=== PATIENT | female | born 1945 | race Hispanic/Latino ===

== ENCOUNTER → 2021-06-01 | Outpatient (CLI) | payer OTHER | END | disposition home or self-care (01) | LOC: RAH 09:41 | PROVIDERS: ATTEND Internal Medicine | DX: M47.816 Spondylosis without myelopathy or radiculopathy, lumbar region (principal); M85.88 Other specified disorders of bone density and structure, other site; M47.818 Spondylosis without myelopathy or radiculopathy, sacral and sacrococcygeal region | CPT/HCPCS: 72100; 72200 ==

== ENCOUNTER → 2022-02-27 | Outpatient (CLI) | payer OTHER | END | disposition home or self-care (01) | LOC: RAH 11:58 | PROVIDERS: ATTEND Physician Assistant | DX: M47.26 Other spondylosis with radiculopathy, lumbar region (principal) | CPT/HCPCS: 72110 ==

== ENCOUNTER → 2023-04-18 | Outpatient (CLI) | payer MEDICARE ==
[~2023-04-18] MED LIST: DIATR MEGLU/DIATRIZOATE SODIUM 30 ML BOTTLE ONE
== END | disposition home or self-care (01) ==
LOC: RAH 08:45
PROVIDERS: ATTEND Internal Medicine Gastroenterology
DX: R68.81 Early satiety (principal); Z90.49 Acquired absence of other specified parts of digestive tract
CPT/HCPCS: 74240; Q9963

== ENCOUNTER → 2023-05-22 | Outpatient (CLI) | payer MEDICARE ==
[2023-05-22 11:15] LABS: CREATININE 1.1 mg/dL (0.5-1.5)
== END | disposition home or self-care (01) ==
LOC: LAB 10:14
PROVIDERS: ATTEND Internal Medicine Gastroenterology
DX: R63.4 Abnormal weight loss (principal)
CPT/HCPCS: 36415; 82565; 84520

== ENCOUNTER → 2023-05-30 | Outpatient (CLI) | payer MEDICARE ==
[~2023-05-30] MED LIST changes: -DIATR MEGLU/DIATRIZOATE SODIUM 30 ML BOTTLE ONE; +IOHEXOL-350 75 ML VIAL IV ONE
== END | disposition home or self-care (01) ==
LOC: RAH 08:22
PROVIDERS: ATTEND Internal Medicine Gastroenterology
DX: K57.90 Diverticulosis of intestine, part unspecified, without perforation or abscess without bleeding (principal); K44.9 Diaphragmatic hernia without obstruction or gangrene; M47.815 Spondylosis without myelopathy or radiculopathy, thoracolumbar region; R63.4 Abnormal weight loss; Z90.49 Acquired absence of other specified parts of digestive tract
CPT/HCPCS: 74177; Q9967

== ENCOUNTER → 2023-10-11 | Outpatient (CLI) | payer MEDICARE | END | disposition home or self-care (01) | LOC: RAH 11:03 | PROVIDERS: ATTEND Family Medicine | DX: R06.2 Wheezing (principal); I70.0 Atherosclerosis of aorta; M41.84 Other forms of scoliosis, thoracic region; M47.815 Spondylosis without myelopathy or radiculopathy, thoracolumbar region | CPT/HCPCS: 71046 ==

== ENCOUNTER 2024-01-16 05:57 | Observation (INO) | payer MEDICARE ==
[2024-01-10 11:50] LABS: BASOPHILS # (AUTO) 0.04 K/uL (0.00-0.20); BASOPHILS % (AUTO) 0.5 % (0.0-5.0); EOSINOPHILS # (AUTO) 0.16 K/uL (0.00-0.70); HEMATOCRIT 36.4 % (36-48); IMMATURE GRANULOCYTE ABSOLUTE 0.01 K/uL (0-1); LYMPHOCYTES # (AUTO) 3.2 K/uL (1.0-4.8); LYMPHOCYTES % (AUTO) 38.7 % (21.0-51.0); MEAN CORPUSCULAR HEMOGLOBIN 31.5 pg (27.0-33.0); MEAN CORPUSCULAR HGB CONC 32.4 g/dL (32.0-36.0); MEAN CORPUSCULAR VOLUME 97.1 fL (79-99); MONOCYTES # (AUTO) 0.5 K/uL (0.1-1.0); MONOCYTES % (AUTO) 5.5 % (3.0-13.0); NEUTROPHILS # (AUTO) 4.4 K/uL (1.8-7.7); NEUTROPHILS % (AUTO) 53.2 % (40.0-77.0); PLATELET COUNT (AUTO) 264 K/uL (130-400); RED BLOOD CELL COUNT(AUTO) 3.75 MIL/uL (4.00-5.50); RED CELL DISTRIBUTION WIDTH 13.3 % (11.0-15.5); WHITE BLOOD COUNT (AUTO) 8.2 K/uL (4.8-10.8)
[2024-01-10 12:01] LABS: ALBUMIN 3.9 g/dL (3.5-5.0)
[2024-01-10 12:14] LABS: APPEARANCE,URINE CLEAR (CLEAR); BILIRUBIN,URINE NEGATIVE (NEGATIVE); COLOR,URINE LIGHT-YELLOW (YELLOW); GLUCOSE, URINE (UA) NEGATIVE (NEGATIVE); KETONES,URINE NEGATIVE (NEGATIVE); LEUKOCYTE ESTERASE ,URINE 25 Leu/uL (NEGATIVE); NITRATE,URINE NEGATIVE (NEGATIVE); OCCULT BLOOD,URINE NEGATIVE (NEGATIVE); PH,URINE 5.5 (5.0-8.0); PROTEIN,URINE NEGATIVE (NEGATIVE); UROBILINOGEN,URINE 0.2 mg/dL (0.2-1.0)
[2024-01-10 12:32] LABS: ADD UA MICROSCOPIC YES
[2024-01-10 12:36] LABS: BACTERIA,URINE RARE /HPF (None Seen); RBC,URINE 0-1 /HPF (0-1); SQUAMOUS EPITHELIAL CELL,UR RARE /HPF (0-2)
[2024-01-10 12:37] VITALS: BP 166/86; PULSE 80; RESP 16; TEMP 97.1
[2024-01-16] VITALS (31 sets, daily range): BP systolic 124–158; BP diastolic 61–93; PULSE 60–95; RESP 8–20; TEMP 96.2–98; O2SAT 98
[~2024-01-16] VITALS: Ht 162.6 cm; Wt 47.5 kg
[~2024-01-16 05:57] MED LIST changes: +ABAL1.56 SQ; +BIOTIN PO; +CALC-1125 PO; +DULO30CA52 PO; +ERGO500093 PO; +FERR-82 PO; +GALC120P SQ; -IOHEXOL-350 75 ML VIAL IV ONE; +LEVO50CA4 PO; +LIFI1DRO OU; +MAGNESIUM PO; +MELO-108 PO; +METH4TAB16 PO; +PANT40TA54 PO; +TELM80TA10 PO; +TRAM50TA4 PO; +VITAMIN B1 PO; +VITAMIN B12 PO
[2024-01-16] MEDS: FAMOTIDINE 20MG VIAL IV ONE (06:41)
[2024-01-16] MEDS: acetaMINOPHEN 1,000 MG/100 ML VIAL IV ONE (06:41)
[2024-01-16] MEDS: SCOPOLAMINE HYDROBROMIDE 1 EACH ADH..PATCH TD ONE (06:41)
[2024-01-16] MEDS ORDERED: ketaMINE 50MG/ML SYRINGE 50 MG/ML DISP.SYRIN ONE (06:50)
[2024-01-16] MEDS ORDERED: ROPivacaine 0.5% 5MG/ML 30ML ONE (06:50)
[2024-01-16] MEDS ORDERED: rocuRONium bROMide 10MG/1ML 5ML VL ONE ×2 (06:53→08:44)
[2024-01-16] MEDS ORDERED: LIDOCAINE PF 100MG/5ML (2%) SYRINGE 5ML ONE (06:53)
[2024-01-16] MEDS ORDERED: proPOFol 10 MG/ML 20ML VIAL IV ONE (06:53)
[2024-01-16] MEDS ORDERED: FENTanyl CITRate PF 50 MCG/1 ML 2ML VIAL ONE (06:54)
[2024-01-16] MEDS: ceFAZolin SODIUM 2 GM VIAL ONE (07:20)
[2024-01-16] MEDS: TRANEXAMIC ACID 1000MG/10ML ONE (07:20)
[2024-01-16] MEDS: LACTATED RINGERS 1000ML 1,000 ML IV ONE (07:26)
[2024-01-16] MEDS ORDERED: ondanSETRON 4MG INJ ONE (07:29)
[2024-01-16] MEDS ORDERED: dexaMETHasone SOD PHOSPHATE 10MG/ML 1ML VIAL ONE (07:30)
[2024-01-16] MEDS ORDERED: phenylEPHRINE HCL 10 MG/ML 1ML VIAL IV ONE (07:42)
[2024-01-16] MEDS ORDERED: GLYCOPYRROLATE 0.2 MG/ML 5 ML VIAL ONE (08:21)
[2024-01-16] MEDS ORDERED: NEOSTIGMINE METHYLSULFATE 1MG/ML IV ONE (08:21)
[2024-01-16] MEDS: ketOROlac 30MG VIAL (30MG/ML) ONE ×2 (08:26→10:45)
[2024-01-16] MEDS: ROPivacaine 0.5% 5MG/ML 30ML ONE (08:26)
[2024-01-16] MEDS: TRANEXAMIC ACID 1000MG/10ML IV ONE (08:55)
[2024-01-16] MEDS ORDERED: ondanSETRON 4MG INJ IVP PRN (09:30)
[2024-01-16] MEDS ORDERED: PoTASSium chl 10% ELIXIR 20MEQ 20 MEQ/15 ML UDCUP PO PRN (09:30)
[2024-01-16] MEDS ORDERED: CALCIUM CARB 500MG PO PRN (09:30)
[2024-01-16] MEDS ORDERED: PoTASSium chloRIDE 20MEQ/100ML 100 ML IV PRN (09:30)
[2024-01-16] MEDS ORDERED: PoTASSium chloRIDE 20MEQ ER 20 MEQ ERTAB PO PRN (09:30)
[2024-01-16] MEDS: 0.9%NACL 1000ML 1,000 ML IV SCH (09:30)
[2024-01-16] MEDS: PHARMACY COMMUNICATION MISC SCH (10:00)
[2024-01-16] MEDS ORDERED: GALCANEZUMAB GNLM 120 MG SQ SCH (10:00)
[2024-01-16] MEDS: ondanSETRON 4MG INJ ONE ×2 (10:44→10:49)
[2024-01-16] MEDS: MEPERIDINE-PF 25 MG/ML SYG ONE ×2 (10:46→10:48)
[2024-01-16] MEDS: ketOROlac 15MG/ML VIAL (15MG/ML) ONE (10:46)
[2024-01-16] MEDS: traMADol HCL 50 MG TABLET ONE (11:39)
[2024-01-16] MEDS: HYDROcodone/acetaMINOPHEN 10/325 MG TAB ONE (12:03)
[2024-01-16] MEDS: (Calcium Carbonate (Calcium) 600 MG) PO SCH (14:00)
[2024-01-16] MEDS: ceFAZolin SODIUM 2 GM VIAL IVPB SCH (15:08)
[2024-01-16] MEDS: GABApentin 100 MG CAPSULE PO SCH (15:09)
[2024-01-16] MEDS: HYDROcodone/APAP 5/325 1 TAB TABLET PO PRN (15:35)
[2024-01-16] MEDS: duloXETine HCL 30 MG CAP PO SCH (20:27)
[2024-01-16] MEDS: doCUSate SODIUM 100 MG CAP PO SCH (20:27)
[2024-01-16] MEDS: methylPREDNISolone 4 MG TABLET PO SCH (20:27)
[2024-01-16] MEDS: ABALOPARATIDE SQ SCH (20:28)
[2024-01-16] MEDS: LIFITEGRAST OU SCH (20:28)
[2024-01-17] VITALS (8 sets, daily range): BP systolic 116–155; BP diastolic 60–82; PULSE 77–92; RESP 17–20; TEMP 97.2–99.4; O2SAT 97–98
[2024-01-17] MEDS: CYCLOBENZAPRINE HCL 10 MG TABLET PO PRN (02:56)
[2024-01-17 04:47] LABS: HEMATOCRIT 23.4 % (36-48); MEAN CORPUSCULAR HEMOGLOBIN 31.1 pg (27.0-33.0); MEAN CORPUSCULAR HGB CONC 32.5 g/dL (32.0-36.0); MEAN CORPUSCULAR VOLUME 95.9 fL (79-99); RED BLOOD CELL COUNT(AUTO) 2.44 MIL/uL (4.00-5.50); RED CELL DISTRIBUTION WIDTH 13.2 % (11.0-15.5); WHITE BLOOD COUNT (AUTO) 9.9 K/uL (4.8-10.8)
[2024-01-17 04:53] LABS: POTASSIUM 4.8 mmol/L (3.5-5.1)
[2024-01-17] MEDS: FERROUS FUMARATE 324 MG TABLET PO PRN (05:57)
[2024-01-17] MEDS: levoTHYROxine 50 MCG TABLET PO SCH (05:57)
[2024-01-17] MEDS: LoSARTan 100 MG TABLET PO SCH (08:09)
[2024-01-17] MEDS: traMADol HCL 50 MG TABLET PO PRN (08:09)
[2024-01-17] MEDS: polyETHYLene GLYCol 3350 17 GM POWD.PACK PO SCH (08:09)
[2024-01-17] MEDS: PANTOPrazole 40 MG TAB DR PO SCH (08:09)
[2024-01-17] MEDS: ASPIRIN 325MG EC TAB PO SCH (08:14)
[2024-01-17] MEDS: FERROUS SULFATE 325 MG TABLET.DR PO SCH (21:00)
[2024-01-18 04:11] VITALS: BP 148/81; PULSE 86; RESP 17; TEMP 98.2
[2024-01-18 07:55] VITALS: BP 123/67; PULSE 91; RESP 17; TEMP 98.5
[2024-01-18 08:00] VITALS: O2SAT 98
[2024-01-18 11:34] VITALS: BP 105/48; PULSE 95; RESP 18; TEMP 97.8
[2024-01-18 12:42] LABS: HEMATOCRIT 24.8 % (36-48)
[2024-01-18] MEDS ORDERED: HYDR-4060 PO (13:00)
[2024-01-18] MEDS ORDERED: CYCL-309 PO (13:00)
[2024-01-18] MEDS ORDERED: DOCU-116 PO (13:00)
[2024-01-18] MEDS ORDERED: ASPI-1012 PO (13:00)
[2024-01-19] MEDS ORDERED: BisaCODYL 10 MG SUPP.RECT RC PRN (09:30)
== END 2024-01-18 19:15 ==
LOC: DAH 05:57 → DAHIP 05:58 → DAH 05:58 → 4CH 13:25
PROVIDERS: ADMIT Student in an Organized Health Care Education/Training Program; ATTEND Student in an Organized Health Care Education/Training Program
DX: M17.11 Unilateral primary osteoarthritis, right knee (principal); G89.29 Other chronic pain; M21.061 Valgus deformity, not elsewhere classified, right knee; D62 Acute posthemorrhagic anemia; K21.9 Gastro-esophageal reflux disease without esophagitis; Z90.49 Acquired absence of other specified parts of digestive tract; Z88.2 Allergy status to sulfonamides; Z79.899 Other long term (current) drug therapy
CPT/HCPCS: 82040; 85025; 87086; 84134; 86140; 81001; 36415 ×3; 93005; 87641; 64447; 27447; 96365; 96366 ×2; 73560; 97161; 97116 ×5; 97530 ×9; 80048; 85027; 85014; 85018; G0378 ×50; A4663; A4215 ×2; J7120; J3490 ×7; J3010; J1100; J2001; J2704; J2405 ×2; J1885 ×2; J2710; J2175; J2795 ×2; J2371; J7509 ×3; J0690 ×3; C1713 ×2; C1776 ×2; A4649 ×2; A6255; A4223 ×2; A4213; A4222; A4221

== ENCOUNTER → 2024-02-18 | Outpatient (CLI) | payer MEDICARE ==
[~2024-02-18] MED LIST changes: +ASPI-1012 PO; +CYCL-309 PO; +DOCU-116 PO; +HYDR-4060 PO; -MELO-108 PO; -TRAM50TA4 PO
== END | disposition home or self-care (01) ==
LOC: OIH 14:55
PROVIDERS: ATTEND Family Medicine
DX: J84.9 Interstitial pulmonary disease, unspecified (principal); I70.0 Atherosclerosis of aorta; M41.84 Other forms of scoliosis, thoracic region; M47.815 Spondylosis without myelopathy or radiculopathy, thoracolumbar region; I20.9 Angina pectoris, unspecified
CPT/HCPCS: 71046

== ENCOUNTER 2024-03-25 11:57 | Emergency (ER) | payer MEDICARE ==
[~2024-03-25] VITALS: Ht 154.9 cm; Wt 45.4 kg
[2024-03-25 12:16] VITALS: TEMP 98
--- NOTE | 2024-03-25 12:56 | ERN ---
General Chief Complaint: Shoulder Injury/Pain Stated Complaint: EVAL AND TREAT RIGHT SHOULDER, SENT FROM Time Seen by MD: 12:03 History of Present Illness Initial Comments 79-year-old female history of osteoporosis presents for left shoulder pain. Yesterday she was moving backwards and she had a fall from bed onto her left arm. He has a left shoulder pain. She did not hit her head or lose conscio usness. She reports that today she is having left shoulder discomfort. She went to her PCP who sent her here for x-rays. She is neurovascularly intact. No other injuries. Allergies: Coded Allergies: NSAIDS (Non-Steroidal Anti-Inflamma (Unverified Allergy, Unknown, 01/10/24) Sulfa (Sulfonamide Antibiotics) (Unverified Allergy, Unknown, 01/10/24) latex (Unverified Allergy, Unknown, 01/10/24) Home Meds Active Scripts Docusate Sodium (Colace) 100 Mg Capsule, 100 MG PO BID for 30 Days, #60 CAP 0 Refills Prov:AUSTIN GUEVARA MD 01/18/24 Aspirin (ASPIRIN) 325 Mg Tablet, 325 MG PO DAILY for dvt prevention for 30 Days, #30 TAB 0 Refills Prov:AUSTIN GUEVARA MD 01/18/24 Hydrocodone/Acetaminophen (Hydrocodon-Acetaminophen 5-325) 5 Mg-325 Mg Tablet, 1 TAB PO Q4H PRN for MODERATE PAIN (4-6), #42 TAB 0 Refills Prov:AUSTIN GUEVARA MD 01/18/24 Cyclobenzaprine HCl (Cyclobenzaprine HCl) 10 Mg Tablet, 5 MG PO Q8H PRN for MUSCLE SPASMS, #45 TAB 0 Refills Prov:AUSTIN GUEVARA MD 01/18/24 Reported Medications [Biotin] No Conflict Check, PO HS 01/10/24 [Magnesium] No Conflict Check, PO DAILY 01/10/24 Ferrous Sulfate (Iron) 325 Mg (65 Mg Iron) Tablet, 325 MG PO HS, TAB 01/10/24 Ergocalciferol (Vitamin D2) (Vitamin D2) 1,250 Mcg (21773 Unit) Capsule, 1250 MCG PO QWEEK, CAP 01/10/24 Calcium Carbonate (Calcium) 600 Mg Calcium (1500 Mg) Tablet, 600 MG PO TID, TAB 01/10/24 [Vitamin B1] No Conflict Check, PO DAILY 01/10/24 [Vitamin B12] No Conflict Check, PO BID 01/10/24 Levothyroxine Sodium (Levothyroxine) 50 Mcg Capsule, 50 MCG PO ACBKFST, CAP 01/10/24 Methylprednisolone (Methylprednisolone) 4 Mg Tablet, 4 MG PO HS, TAB 01/10/24 Lifitegrast (Xiidra) 5 % Droperette, 1 EACH OU BID, DROP 01/10/24 Pantoprazole Sodium (Pantoprazole Sodium) 40 Mg Tablet.dr, 40 MG PO DAILY, TAB 01/10/24 Duloxetine HCl (Duloxetine HCl) 30 Mg Capsule.dr, 30 MG PO HS, CAP 01/10/24 Telmisartan (Telmisartan) 80 Mg Tablet, 80 MG PO DAILY, TAB 01/10/24 Galcanezumab-Gnlm (Emgality) 120 Mg/Ml Pen.injctr, 120 MG SQ [id number] 01/10/24 Abaloparatide (Tymlos) 80 Mcg/Dose (3120 Mcg/1.56 Ml) Pen.injctr, 1.56 ML SQ HS 01/10/24 Past Medical History Past Medical History: Hypertension Past Surgical History: Other ROS Dictation CONSTITUTIONAL: No chills, no fever, no weakness, no diaphoresis, no malaise. HEAD/FACE: No signs of trauma. EENT: No eye pain, no blurred vision, no tearing, no double vision, no ear pain, no ear discharge, no nose pain, no nasal congestion, no throat pain, no throat swelling, no mouth pain. RESPIRATORY: No cough, no orthopnea, no SOB, no stridor, no wheezing. CARDIOVASCULAR: No chest pain, no edema, no palpitations, no syncope. GASTROINTESTINAL/ABDOMINAL: No abdominal pain, no constipation, no diarrhea, no nausea, no vomiting. GENITOURINARY: No abnormal discharge, no dysuria, no frequent urination, no hematuria. No complaints of pain in the genitals. MUSCULOSKELETAL: Left shoulder pain INTEGUMENTARY: No change in color, no change in hair/nails, no dryness, no lesion, no lumps, no rash. NEUROLOGICAL/PSYCH: No anxiety, not depressed, no emotional problem, no headache, no numbness, no pre-existing deficit, no history of seizures, no tremors, no weakness. HEMATOLOGIC/LYMPHATIC: Not anemic, no history of blood clots, no apparent bleeding, no bruising, glands not swollen. All Systems Negative, Except as Noted. Physical Exam Physical Exam Dictation VITAL SIGNS: Reviewed. GENERAL APPEARANCE: Alert, oriented x3, no acute distress HEAD AND FACE: Non-traumatic. EYES: PERRL, pink conjunctivas, eyelid no trauma, anterior chamber clear. EARS: Pinnas intact and no signs of trauma or erythema. Ear canals clear and no discharge. TMs no erythema. NOSE: No discharge, no bleeding. OROPHARYNX: Mouth normal, teeth no caries, tongue pink. Pharynx clear, no erythema. Tonsils no exudates, no abscesses noted. Mucous membrane moist. NECK: Supple, non-tender, no thyromegaly, no masses, no JVD, no bruits. BREAST: Deferred. CHEST: No tenderness, no crepitus, no paradoxical movement, no retractions. LUNGS: Clear, well-ventilated, symmetric, no rales, no wheezing, no rhonchi, no stridor, good breath sounds bilaterally. HEART: Regular rate, regular rhythm, no murmur, no gallops. VASCULAR: No peripheral edema. ABDOMEN: Soft, positive bowel sounds, nondistended, no guarding, nontender, no rebound, no masses no hepatomegaly, no splenomegaly, no Anne's sign, no hernias. RECTAL: Deferred. GENITAL: Deferred. NEUROLOGICAL: Normal speech, gross motor function intact, gross sensory function intact. MUSCULOSKELETAL: Left shoulder tenderness. EXTREMITIES: Nontender, full range of motion. SKIN: Color pink, dry, no turgor, no rash, no lacerations, no abrasions, no contusions. LYMPHATICS: Deferred. MDM CC: Left shoulder pain status post injury yesterday Historian: Patient Comorbidities: Advanced age and osteoporosis Vital signs are stable Differential diagnosis includes fracture versus soft tissue injury to the shoulder There is no clavicle injury She is neurovascularly intact distally No signs of dislocation X-rays unremarkable She is still quite tender to the left shoulder, we will get a CT scan CT scan is unremarkable Likely soft tissue injury. Placed in a sling. Given IM Toradol here in the ER We will DC with meloxicam recommend PCP follow up. ED Course Orders Procedure Category Date Status Time Shoulder Comp 2+Vws Lt RAD 03/25/24 Resulted 12:32 Ct Upper Ext W/O CT 03/25/24 Resulted Contrast 13:17 Ketorolac PHA 03/25/24 Complete Tromethamine 15mg/Ml 14:00 Current Medications Medications (Trade) Dose Ordered Sig/Izabella Route PRN Reason Start Time Stop Time Status Last Admin Dose Admin Ketorolac Tromethamine (toRADol) 15 mg ONCE ONCE IM 03/25/24 14:00 03/25/24 14:01 DC 03/25/24 14:15 Vital Signs Date Time Temp Pulse Resp B/P (MAP) Pulse Ox O2 Delivery O2 Flow Rate FiO2 03/25/24 12:16 98.1 118 16 180/93 98 Room Air DX & DISP Disposition: Discharge Departure Impression: Primary Impression: Injury of left shoulder Condition: Stable Scripts Meloxicam (Meloxicam) 15 Mg Tablet 15 MG PO DAILY PRN for PAIN for 10 Days, #10 TAB Prov: ARTI BRAXTON DO 03/25/24 Additional Instructions: There are no fractures or abnormalities on the x-ray or CT scan of your shoulder. Your symptoms are consistent with soft tissue injury or a sprain/strain. Wear the sling that you have been provided as needed for comfort. Apply ice to your shoulder for at least and 15 minutes twice per day for the next few days. History reduce the swelling. I have prescribed meloxicam. Take once per day for the next week or so for pain. Please follow up with your primary doctor if your symptoms do not improve over the next few days. Referrals: MARY STROUD MD (PCP) ARTI BRAXTON DO Mar 25, 2024 12:56
--- NOTE | 2024-03-25 13:19 | HMCIMG ---
SHOULDER COMP 2+VWS LT REASON: fall TECHNIQUE: 2 views were obtained. FINDINGS: There is no evidence of fracture or dislocation. There is no joint effusion. The soft tissues appear unremarkable. There is no evidence of a radiopaque foreign body. IMPRESSION: No acute findings.
--- NOTE | 2024-03-25 14:14 | HMCIMG ---
CT UPPER EXT W/O CONTRAST REASON: SHOULDER PAIN COMPARISON: None TECHNIQUE: Axial images are obtained from above the shoulder through the mid humerus. Sagittal and coronal reconstruction images were performed, 3-D reconstruction was performed as well. FINDINGS: There is normal appearance of the proximal humerus. There are no visible fractures. Clavicle appears intact. The scapula is unremarkable. Before meals and glenohumeral joint spaces appear preserved. Soft tissues appear unremarkable. There is no evidence of foreign body. IMPRESSION: No acute finding, no evidence of fracture.
[2024-03-25] MEDS: ketOROlac 15MG/ML VIAL (15MG/ML) IM ONE (14:15)
[2024-03-25 14:30] VITALS: BP 145/81; PULSE 78; RESP 18; O2SAT 99
[2024-03-25] MEDS ORDERED: MELO-108 PO (14:36)
== END 2024-03-25 14:54 | disposition home or self-care (01) ==
LOC: EDH 11:57
DX: S49.82XA Other specified injuries of left shoulder and upper arm, initial encounter (principal); I10 Essential (primary) hypertension; Z79.52 Long term (current) use of systemic steroids; Z79.82 Long term (current) use of aspirin; Z79.899 Other long term (current) drug therapy; Z88.2 Allergy status to sulfonamides; Z88.6 Allergy status to analgesic agent; W06.XXXA Fall from bed, initial encounter; Y93.89 Activity, other specified; Y92.89 Other specified places as the place of occurrence of the external cause; Y99.8 Other external cause status
CPT/HCPCS: 99285; 73200; 73030; 96372; J1885; 29105

== ENCOUNTER → 2024-11-10 | Outpatient (CLI) | payer MEDICARE ==
[~2024-11-10] MED LIST changes: -LEVO50CA4 PO; +LEVO50CA5 PO; -LIFI1DRO OU; +LIFI1DRO5 OU; +MELO-108 PO
[2024-11-10 09:38] LABS: IMMATURE GRANULOCYTE ABSOLUTE 0.01 K/uL (0-1); NUCLEATED RED BLOOD CELLS 0.0 % (0.0-0.19); PLATELET COUNT (AUTO) 288 K/uL (130-400); RED BLOOD CELL COUNT(AUTO) 3.92 MIL/uL (4.00-5.50); RED CELL DISTRIBUTION WIDTH 12.7 % (11.0-15.5); WHITE BLOOD COUNT (AUTO) 6.3 K/uL (4.8-10.8)
[2024-11-10 09:47] LABS: ASPARTATE AMINOTRANSFERASE 32.0 U/L (10-37); CREATININE 1.0 mg/dL (0.5-1.0); GLOMERULAR FILTR. RATE CALC 57.0 mL/min (>90); GLUCOSE,RANDOM 109.0 mg/dL (70-105); SODIUM SERUM 134.0 mmol/L (136-145); TOTAL PROTEIN, SERUM 8.1 g/dL (6.0-8.3); UREA NITROGEN, BLOOD 28.0 mg/dL (7-18)
== END | disposition home or self-care (01) ==
LOC: LAB 08:52
PROVIDERS: ATTEND Internal Medicine Gastroenterology
DX: R63.4 Abnormal weight loss (principal)
CPT/HCPCS: 36415; 80053; 85025

== ENCOUNTER → 2024-11-13 | Outpatient (CLI) | payer MEDICARE ==
[~2024-11-13] MED LIST changes: +IOHEXOL-350 75 ML VIAL IV ONE
--- NOTE | 2024-11-13 16:56 | HMCIMG ---
EXAM: CT Abdomen and Pelvis with IV contrast CLINICAL HISTORY: ABN WEIGHT LOSS TECHNIQUE: Axial computed tomography images of the abdomen and pelvis with intravenous contrast. CONTRAST: with intravenous contrast. COMPARISON: CT abdomen and pelvis with contrast 05/30/2023 FINDINGS: LUNG BASES: The lung bases appear clear. No pleural effusions are seen. LIVER: Unremarkable. Stable simple right hepatic cyst GALLBLADDER AND BILE DUCTS: The gallbladder is surgically absent.. PANCREAS: Unremarkable. SPLEEN: Unremarkable. 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 KIDNEYS, URETERS, AND BLADDER: The kidneys appear within normal limits. There is no hydronephrosis or hydroureter. No urinary calculi are seen. STOMACH AND BOWEL: There is a small sliding hiatal hernia. Postsurgical gastric changes. Colonic diverticulosis without CT evidence of acute diverticulitis.. No evidence of bowel obstruction. No evidence suggesting enteritis or colitis. APPENDIX: No evidence of acute appendicitis on CT examination. PERITONEUM: No free fluid. No free air. LYMPH NODES: No lymphadenopathy is evident. REPRODUCTIVE: Unremarkable as visualized. VASCULATURE: No evidence of abdominal aortic aneurysm. BONES: No aggressive appearing osseous lesion. No acute osseous pathology evident. Marked degenerative disc disease changes L4-L5 have progressed compared with the prior exam. Stable grade 1 anterior listhesis L4 over L5. Central canal narrowing at L4-L5 IMPRESSION: 1. No acute intraabdominal or pelvic pathology. 2. Stable findings including: /Brimson
== END | disposition home or self-care (01) ==
LOC: RAH 07:42
PROVIDERS: ATTEND Internal Medicine Gastroenterology
DX: K44.9 Diaphragmatic hernia without obstruction or gangrene (principal); K57.30 Diverticulosis of large intestine without perforation or abscess without bleeding; K76.89 Other specified diseases of liver; R63.4 Abnormal weight loss; M51.369 Other intervertebral disc degeneration, lumbar region without mention of lumbar back pain or lower extremity pain; M43.16 Spondylolisthesis, lumbar region; M48.061 Spinal stenosis, lumbar region without neurogenic claudication; Z90.49 Acquired absence of other specified parts of digestive tract
CPT/HCPCS: 74177; Q9967